=== PATIENT | male | born 1995 | race Caucasian/White ===

== ENCOUNTER 2017-01-03 02:24 | Emergency (ER) | payer BC ==
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
[2017-01-03] MEDS ORDERED: IBUP-232 PO (02:53)
[2017-01-03] MEDS ORDERED: ROBA500T PO (02:53)
[2017-01-03] MEDS ORDERED: IBUPROFEN 800 MG TAB PO ONE (03:00)
[2017-01-03] MEDS ORDERED: METHOCARBAMOL 500 MG TAB PO ONE (03:00)
[2017-01-03] MEDS ORDERED: SERO400T PO (05:25)
== END 2017-01-03 03:15 | disposition home or self-care (01) ==
LOC: NEPB 02:24
DX: S39.012D Strain of muscle, fascia and tendon of lower back, subsequent encounter (principal); Z72.0 Tobacco use; V89.2XXD Person injured in unspecified motor-vehicle accident, traffic, subsequent encounter
CPT/HCPCS: 80048; 80307; 80320; 85025; 99283; 99285

== ENCOUNTER 2017-01-03 03:17 | Emergency (ER) | payer BC ==
[~2017-01-03] VITALS: Ht 190.5 cm; Wt 88.0 kg
[~2017-01-03 03:17] MED LIST: IBUP-232 PO; ROBA500T PO
[2017-01-03 03:20] VITALS: BP 134/76; PULSE 70; RESP 18; TEMP 97.6; O2SAT 98
--- NOTE | 2017-01-03 03:31 | PD ---
HPI Chief Complaint: Psychiatric Symptoms Time Seen by Provider: 03:31 Travel History International Travel<30 days: No Contact w/Intl Traveler<30days: No Traveled to known affect area: No History of Present Illness HPI 21-year-old male with history of depression and anxiety, recently moved to the area [place] [facility] [place] [facility], presents to emergency department for the second time this evening. Patient was discharged 10 minutes ago. He made it to the triage area and reported suicidal thoughts. States that he has been having these all day but did not mention them on his last visit for unknown reason. Denies any plan. Denies illicit drug use. Denies any medical needs except for his low back pain has been present for 2 weeks that he was just seen for. [facility] Past Medical History Anxiety: Yes Depression: Yes Diminished Hearing: No Hepatitis: Yes (C) Social History Alcohol Use: Yes Tobacco Use: Yes Substance Use: Yes (IVDA) Allergies-Medications (Allergen,Severity, Reaction): Coded Allergies: No Known Allergies (Unverified , 01/03/17) Reported Meds & Prescriptions Reported Meds & Active Scripts Active Robaxin (Methocarbamol) 500 Mg Tab 500 Mg PO QID PRN Ibuprofen 600 Mg Tab 600 Mg PO Q8HR PRN Review of Systems Except as stated in HPI: all other systems reviewed are Neg Physical Exam Narrative GENERAL: Well-nourished male patient, ambulatory and in no acute distress SKIN: Warm and dry. HEAD: Atraumatic. Normocephalic. EYES: Pupils equal and round. No scleral icterus. No injection or drainage. ENT: No nasal bleeding or discharge. Mucous membranes pink and moist. NECK: Trachea midline. No JVD. CARDIOVASCULAR: Regular rate and rhythm. No murmur appreciated. RESPIRATORY: No accessory muscle use. Clear to auscultation. Breath sounds equal bilaterally. GASTROINTESTINAL: Abdomen soft, non-tender, nondistended. Hepatic and splenic margins not palpable. MUSCULOSKELETAL: No obvious deformities. No clubbing. No cyanosis. No edema. NEUROLOGICAL: Awake and alert. No obvious cranial nerve deficits. Motor grossly within normal limits. Normal speech. Data Data Last Documented VS Vital Signs Date Time Temp Pulse Resp B/P Pulse Ox O2 Delivery O2 Flow Rate FiO2 01/03/17 03:20 97.6 70 18 134/76 98 Orders Psych Screen (01/03/17 03:32) Complete Blood Count With Diff (01/03/17 03:37) Basic Metabolic Panel (Bmp) (01/03/17 03:37) Drug Screen, Random Urine (01/03/17 03:37) Alcohol (Ethanol) (01/03/17 03:37) Labs Laboratory Tests Test 01/03/17 01/03/17 03:44 04:10 White Blood Count 8.3 TH/MM3 Red Blood Count 4.89 MIL/MM3 Hemoglobin 13.9 GM/DL Hematocrit 39.7 % Mean Corpuscular Volume 81.3 FL Mean Corpuscular Hemoglobin 28.4 PG Mean Corpuscular Hemoglobin 35.0 % Concent Red Cell Distribution Width 14.7 % Platelet Count 208 TH/MM3 Mean Platelet Volume 9.0 FL Neutrophils (%) (Auto) 61.9 % Lymphocytes (%) (Auto) 25.3 % Monocytes (%) (Auto) 11.1 % Eosinophils (%) (Auto) 1.2 % Basophils (%) (Auto) 0.5 % Neutrophils # (Auto) 5.1 TH/MM3 Lymphocytes # (Auto) 2.1 TH/MM3 Monocytes # (Auto) 0.9 TH/MM3 Eosinophils # (Auto) 0.1 TH/MM3 Basophils # (Auto) 0.0 TH/MM3 CBC Comment DIFF FINAL Differential Comment Sodium Level 140 MEQ/L Potassium Level 3.6 MEQ/L Chloride Level 102 MEQ/L Carbon Dioxide Level 29.8 MEQ/L Anion Gap 8 MEQ/L Blood Urea Nitrogen 12 MG/DL Creatinine 1.08 MG/DL Estimat Glomerular Filtration 86 ML/MIN Rate Random Glucose 81 MG/DL Calcium Level 8.7 MG/DL Ethyl Alcohol Level LESS THAN 3 MG/DL Urine Opiates Screen POS Urine Barbiturates Screen NEG Urine Amphetamines Screen NEG Urine Benzodiazepines Screen NEG Urine Cocaine Screen POS Urine Cannabinoids Screen POS MDM Medical Decision Making Medical Screen Exam Complete: Yes Emergency Medical Condition: Yes Medical Record Reviewed: Yes Differential Diagnosis Mood disorder versus personality disorder versus adjustment reaction disorder versus malingering Narrative Course 21-year-old male presents to emergency department for evaluation of suicidal thoughts. Patient has no active plan. CBC and BMP are without acute concern. Toxicology is positive for opiates, cocaine, cannabinoids. Patient is medically cleared to undergo psychiatric screening for further evaluation and disposition. Mental health screening discussed with the patient. Psychiatric screen ordered. After psychiatric screen, it is recommended that the patient not be allowed to be based on continued suicidal thoughts and risk for leaving of left voluntary. If he leaves he will be a risk of harming himself.. He will be placed under a [place] act Diagnosis Primary Impression: Mood disorder Condition: Stable Richa Lopez Jan 03, 2017 03:31
[2017-01-03 03:58] LABS: AUTOMATED NEUTROPHIL # 5.1 TH/MM3 (1.8-7.7); BASOPHIL % 0.5 % (0.0-2.0); EOSINOPHIL # 0.1 TH/MM3 (0-0.4); EOSINOPHIL % 1.2 % (0.0-4.0); HEMATOCRIT 39.7 % (39.0-51.0); HEMO FLAGS DIFF FINAL; LYMPH % 25.3 % (9.0-44.0); LYMPHOCYTE # 2.1 TH/MM3 (1.0-4.8); MEAN CELL VOLUME 81.3 FL (80.0-100.0); MEAN CORPUSCULAR HEMOGLOBIN 28.4 PG (27.0-34.0); MONO % 11.1 % (0.0-8.0); NEUT % 61.9 % (16.0-70.0); PLATELET COUNT 208 TH/MM3 (150-450); RED BLOOD COUNT 4.89 MIL/MM3 (4.50-5.90); RED CELL DISTRIBUTION WIDTH 14.7 % (11.6-17.2); WHITE BLOOD COUNT 8.3 TH/MM3 (4.0-11.0)
[2017-01-03 04:27] LABS: ANION GAP 8 MEQ/L (5-15); BICARBONATE 29.8 MEQ/L (21.0-32.0); BLOOD UREA NITROGEN 12 MG/DL (7-18); CHLORIDE 102 MEQ/L (98-107); GLOMERULAR FILTRATION RATE 86 ML/MIN (>89); POTASSIUM 3.6 MEQ/L (3.5-5.1); SODIUM (NA) 140 MEQ/L (136-145)
[2017-01-03 04:31] LABS: AMPHETAMINE, URINE NEG (NEG); BARBITURATES, URINE NEG (NEG); COCAINE, URINE POS (NEG)
[2017-01-03] MEDS ORDERED: SERO400T PO (05:25)
== END 2017-01-03 05:38 ==
LOC: NEPA 03:17 → NEPJ 05:38
DX: F39 Unspecified mood [affective] disorder (principal); M54.5 Low back pain; Z72.0 Tobacco use; Z86.59 Personal history of other mental and behavioral disorders; Z86.19 Personal history of other infectious and parasitic diseases
CPT/HCPCS: 80048; 80307; 80320; 85025; 99285

== ENCOUNTER 2017-01-08 18:44 | Emergency (ER) | payer BC ==
[~2017-01-08] VITALS: Ht 177.8 cm; Wt 70.0 kg
[~2017-01-08 18:44] MED LIST changes: +SERO400T PO
[2017-01-08 19:12] VITALS: BP 143/69; PULSE 59; RESP 16; TEMP 98.7; O2SAT 98
[2017-01-08] MEDS ORDERED: VIST50CA PO (19:17)
--- NOTE | 2017-01-08 20:35 | PD ---
HPI Chief Complaint: Syncope/Near-Syncope Time Seen by Provider: 19:23 Travel History International Travel<30 days: No Contact w/Intl Traveler<30days: No Traveled to known affect area: No History of Present Illness HPI Patient is a 21-year-old male who comes in after he was found sleeping in the bathroom at a gas station. He says he has not been able to sleep in the past 3 days because he is homeless and has no place to sleep. He is tearful and says that he has never been homeless before. EMS was concerned that he might have been using heroin. He says he has been clean and sober for the past 52 days. He does say that there was needles found in the bathroom, but he was not using. He is completely awake and alert. He has no complaints at this time. He says he simply fell asleep and because he had not slept in 3 days he was difficult to wake up. 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)) Allergies-Medications (Allergen,Severity, Reaction): Coded Allergies: No Known Allergies (Unverified , 01/03/17) Reported Meds & Prescriptions Reported Meds & Active Scripts Active Reported Vistaril (Hydroxyzine Pamoate) 50 Mg Cap 50 Mg PO BID PRN Seroquel (Quetiapine Fumarate) 400 Mg Tab 150 Mg PO HS Review of Systems General / Constitutional: No: Fever, Chills Eyes: No: Blurred Vision HENT: No: Headaches, Lightheadedness Cardiovascular: No: Chest Pain or Discomfort Respiratory: No: Shortness of Breath Gastrointestinal: No: Nausea, Vomiting, Abdominal Pain Musculoskeletal: No: Edema, Pain Skin: No Rash, No Change in Pigmentation Neurologic: No: Weakness, Dizziness, Syncope Physical Exam Narrative GENERAL: Awake and alert, in no acute distress. SKIN: Warm and dry. HEAD: Atraumatic. Normocephalic. EYES: Pupils equal and round and reactive. No scleral icterus. Extraocular movements intact. ENT: Mucous membranes pink and moist. CARDIOVASCULAR: Regular rate and rhythm. No murmur appreciated. RESPIRATORY: No accessory muscle use. Clear to auscultation. Breath sounds equal bilaterally. MUSCULOSKELETAL: No obvious deformities. No clubbing. No cyanosis. No edema. NEUROLOGICAL: Awake and alert. No obvious cranial nerve deficits. Motor grossly within normal limits. Normal speech. PSYCHIATRIC: Appropriate mood and affect; insight and judgment normal. Data Data Last Documented VS Vital Signs Date Time Temp Pulse Resp B/P Pulse Ox O2 Delivery O2 Flow Rate FiO2 01/08/17 19:12 98.7 59 16 143/69 98 Room Air MDM Medical Decision Making Medical Screen Exam Complete: Yes Emergency Medical Condition: Yes Medical Record Reviewed: Yes Differential Diagnosis Intoxication versus syncope versus sleeping Narrative Course Patient is a 21-year-old male who comes in because he fell asleep in a bathroom. He says he did not pass out, he just fell asleep. He has no complaints at this time. Exam shows no acute abnormalities. Patient adamantly denies using heroin. He is fully awake and oriented. Observed in the ED and discharged home without further events. Diagnosis Primary Impression: Sleepiness Patient Instructions: Fatigue (ED), General Instructions Additional Instructions: Follow up in a primary care clinic. Return to the ED as needed for any worsening symptoms. Disposition: 01 DISCHARGE HOME Condition: Stable Shelly Logan MD Jan 08, 2017 20:35
== END 2017-01-08 23:43 | disposition home or self-care (01) ==
LOC: NEPE 18:44
DX: R40.0 Somnolence (principal); Z59.0 Homelessness; Z72.0 Tobacco use
CPT/HCPCS: 99283

== ENCOUNTER 2017-01-11 00:27 | Emergency (ER) | payer BC ==
[~2017-01-11] VITALS: Ht 190.5 cm; Wt 90.0 kg
[~2017-01-11 00:27] MED LIST changes: -IBUP-232 PO; -ROBA500T PO; +VIST50CA PO
[2017-01-11 00:31] VITALS: BP 135/63; PULSE 69; RESP 18; TEMP 98.7; O2SAT 97
--- NOTE | 2017-01-11 02:31 | PD ---
HPI Chief Complaint: Pain: Acute or Chronic Time Seen by Provider: 01:48 Travel History International Travel<30 days: No Contact w/Intl Traveler<30days: No Traveled to known affect area: No History of Present Illness HPI 21-year-old male presents with complaint of right leg pain and feeling sleepy. Recent ER visit for sleepiness. Patient denies any trauma. He denies other concurrent complaints but is noncooperative on initial examination. 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 SKIN: Warm and dry. HEAD: Normocephalic and atraumatic. EYES: No injection or drainage. ENT: No nasal drainage noted. NECK: Supple, trachea midline. CARDIOVASCULAR: Regular rate and rhythm RESPIRATORY: Breath sounds equal bilaterally. No accessory muscle use. GASTROINTESTINAL: Abdomen soft, non-tender, nondistended. EXTREMITIES: No edema. Pain with palpation of entire right leg without specific joint pain, neurovascularly intact, no lacerations over, compartments soft. BACK: Nontender without obvious deformity. NEUROLOGICAL: Awakens to voice. Motor and sensory grossly within normal limits. Slurred speech. Data Data Last Documented VS Vital Signs Date Time Temp Pulse Resp B/P Pulse Ox O2 Delivery O2 Flow Rate FiO2 01/11/17 00:35 66 18 01/11/17 00:31 98.7 135/63 97 MDM Medical Decision Making Medical Screen Exam Complete: Yes Emergency Medical Condition: Yes Medical Record Reviewed: Yes (past history confirmed) Differential Diagnosis Fracture, strain, rhabdo, alcohol abuse or drug ingestion... Narrative Course Will check blood work and x-ray imaging and monitor 217 patient demanding to leave AMA: The risks of leaving against medical advice without further evaluation treatment were discussed with the patient. These risks include cardiac dysfunction, cardiac dysrhythmia, possible heart attack, possible stroke or . The patient indicated understanding of these risks and appeared to have the capacity to make this decision. Nurse at bedside, patient alert and oriented 4, patient has steady gait and speech is cleared and clinically sober, patient did not allow any testing Diagnosis Primary Impression: Right leg pain Additional Impression: Sleepiness Patient Instructions: General Instructions Departure Forms: Tests/Procedures Disposition: 07 AGAINST MEDICAL ADVICE Condition: Stable Sasha Tai MD Jan 11, 2017 02:31
== END 2017-01-11 03:06 | disposition left against medical advice (07) ==
LOC: NEPE 00:27
DX: M79.604 Pain in right leg (principal)
CPT/HCPCS: 73552; 73590; 80307; 99283

== ENCOUNTER 2017-01-11 04:02 | Emergency (ER) | payer BC ==
[2017-01-11 04:09] VITALS: BP 135/60; PULSE 70; RESP 16; TEMP 98.7; O2SAT 100
--- NOTE | 2017-01-11 05:22 | PD ---
HPI Chief Complaint: Pain: Acute or Chronic Time Seen by Provider: 05:02 Travel History International Travel<30 days: No Contact w/Intl Traveler<30days: No Traveled to known affect area: No History of Present Illness HPI 21 y/o male presents after leaving against advice shortly prior to checking back in noting that his right leg is still bothering him. He states he should have not left earlier. He denies any new complaints or change otherwise since he was just here. He denies any trauma. 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 Intermittently drowsy on exam but easily awakens to voice SKIN: Warm and dry. HEAD: Normocephalic and atraumatic. EYES: No injection or drainage. ENT: No nasal drainage noted. NECK: Supple, trachea midline. CARDIOVASCULAR: Regular rate and rhythm RESPIRATORY: No increased effort. No accessory muscle use. GASTROINTESTINAL: Abdomen soft, non-tender, nondistended. EXTREMITIES: No edema. Pain throughout right leg without specific joint pain NEUROLOGICAL: Awake and alert. Motor and sensory grossly within normal limits. Normal speech. Data Data Last Documented VS Vital Signs Date Time Temp Pulse Resp B/P Pulse Ox O2 Delivery O2 Flow Rate FiO2 01/11/17 08:58 56 14 117/53 100 Room Air 01/11/17 04:09 98.7 Orders Femur (Ap & Lat/2vws) (01/11/17 05:04) Tibia/Fibula (Ap/Lat) (01/11/17 05:04) Drug Screen, Random Urine (01/11/17 05:04) Labs Laboratory Tests Test 01/11/17 06:40 Urine Opiates Screen NEG Urine Barbiturates Screen NEG Urine Amphetamines Screen NEG Urine Benzodiazepines Screen NEG Urine Cocaine Screen POS Urine Cannabinoids Screen POS MDM Medical Decision Making Medical Screen Exam Complete: Yes Emergency Medical Condition: Yes Medical Record Reviewed: Yes (past history confirmed) Interpretation(s) right tib/fib and femur no fracture Differential Diagnosis Strain, sprain, arthritis Narrative Course Will check right femur and right tib-fib x-ray given right leg pain. With intermittent drowsiness Will check urine drug screen and patient adamantly denies xray without fracture, patient to be observed until awake and alert Physician Communication Physician Communication oncoming physician to reeval when clinically sober, urine drug screen pending Diagnosis Primary Impression: Right leg pain Sasha Tai MD Jan 11, 2017 05:22 Sasha Tai MD Jan 11, 2017 05:22
--- NOTE | 2017-01-11 06:48 | RADRPT ---
EXAM DATE/TIME: 01/11/2017 06:03 [facility] COMPARISON: No previous studies available for comparison. INDICATIONS : Pain MEDICAL HISTORY : Unobtainable SURGICAL HISTORY : Unobtainable ENCOUNTER: Initial ACUITY: 1 day PAIN SCORE: Non-responsive. LOCATION: Right Tib/Fib FINDINGS: Two view examination of the right tibia demonstrates no evidence of fracture or dislocation. Bony mi neralization is normal. The soft tissue structures are intact. CONCLUSION: Unremarkable examination of the right tibia. Jeff Mccoy MD on January 11, 2017 at 6:46 Board Certified Radiologist. This report was verified electronically.
--- NOTE | 2017-01-11 06:49 | RADRPT ---
EXAM DATE/TIME: 01/11/2017 06:05 [facility] COMPARISON: No previous studies available for comparison. INDICATIONS : Pain MEDICAL HISTORY : Unobtainable SURGICAL HISTORY : Unobtainable ENCOUNTER: Initial ACUITY: 1 day PAIN SCORE: Non-responsive. LOCATION: Right Femur FINDINGS: Two view examination of the right femur demonstrates no evidence of fracture or dislocation. Bony mi neralization is normal. The soft tissue structures are intact. CONCLUSION: Unremarkable examination of the right femur. Jeff Mccoy MD on January 11, 2017 at 6:47 Board Certified Radiologist. This report was verified electronically.
[2017-01-11 06:59] LABS: AMPHETAMINE, URINE NEG (NEG); BARBITURATES, URINE NEG (NEG); COCAINE, URINE POS (NEG)
[2017-01-11 08:58] VITALS: BP 117/53; PULSE 56; RESP 14; O2SAT 100
--- NOTE | 2017-01-25 14:45 | PD ---
Data Data Orders Femur (Ap & Lat/2vws) (01/11/17 05:04) Tibia/Fibula (Ap/Lat) (01/11/17 05:04) Drug Screen, Random Urine (01/11/17 05:04) [facility] Supervised Visit with JOSIAH: No Narrative Course This case was checked out to me by Dr. Tai at 7 AM. Patient had complained of leg pain. He had tib-fib x-rays that were negative but the patient is a frequent drug abuser and was clinically under the influence /intoxicated with drugs. Dr. Tai wanted me to observe him until he was more clinically sober and able to walk and talk under his own power. Patient sobered up in the room for a while and then when he was able to walk and talk he was discharged. Drug screen is positive for opiates and cocaine Diagnosis Primary Impression: Right leg pain Patient Instructions: General Instructions, Leg Pain (ED) Departure Forms: Tests/Procedures Disposition: 01 DISCHARGE HOME Condition: Stable Rod Gonzales MD Jan 25, 2017 14:44
== END 2017-01-11 09:40 | disposition home or self-care (01) ==
LOC: NEPE 04:02
DX: M79.604 Pain in right leg (principal); F11.90 Opioid use, unspecified, uncomplicated; F14.90 Cocaine use, unspecified, uncomplicated; Z72.0 Tobacco use
CPT/HCPCS: 73552; 73590; 80307; 99283

== ENCOUNTER 2017-01-21 21:15 | Emergency (ER) | payer BC ==
[~2017-01-21] VITALS: Ht 190.5 cm; Wt 85.0 kg
[2017-01-21 21:19] VITALS: BP 164/84; PULSE 95; RESP 18; TEMP 97.7; O2SAT 100
[2017-01-21] MEDS ORDERED: SODIUM CHLOR 0.9% 1000 ML INJ 1,000 ML IV ONE (21:25)
[2017-01-21] MEDS ORDERED: SODIUM CHLORIDE 0.9% FLUSH 5 ML FLUSH IVF PRN (21:30)
[2017-01-21] MEDS ORDERED: NALOXONE HCL 0.4 MG/ML AMP IVP ONE (21:30)
[2017-01-21 22:12] LABS: ACETAMINOPHEN LESS THAN 2.0 MCG/ML (10.0-30.0); ALT (GPT) 52 U/L (12-78); ANION GAP 8 MEQ/L (5-15); AST (GOT) 41 U/L (15-37); BICARBONATE 30.6 MEQ/L (21.0-32.0); BLOOD UREA NITROGEN 10 MG/DL (7-18); CHLORIDE 103 MEQ/L (98-107); GLOMERULAR FILTRATION RATE 126 ML/MIN (>89); POTASSIUM 3.5 MEQ/L (3.5-5.1); SODIUM (NA) 142 MEQ/L (136-145)
[2017-01-21 22:13] LABS: ALKALINE PHOSPHATASE 74 U/L (45-117); TOTAL BILIRUBIN ADULT 0.3 MG/DL (0.2-1.0)
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
[2017-01-21 23:41] VITALS: BP 168/78; PULSE 87; RESP 18; TEMP 98.1; O2SAT 100
== END 2017-01-21 23:43 ==
LOC: NEPE 21:15
DX: T40.2X1A Poisoning by other opioids, accidental (unintentional), initial encounter (principal); Z72.0 Tobacco use; F41.8 Other specified anxiety disorders; K75.9 Inflammatory liver disease, unspecified
CPT/HCPCS: 80053; 80307; 99284; J7030